=== PATIENT | female | born 1965 | race Caucasian/White ===

== ENCOUNTER → 2023-09-05 12:48 | Outpatient (REF) | payer OTHER, SELFPAY | LOC: WDC 12:48 | PROVIDERS: ATTENDING PHYSICIAN Nurse Practitioner Family; FAMILY PHYSICIAN Family Medicine | DX: Z12.31 Encounter for screening mammogram for malignant neoplasm of breast (principal) | CPT/HCPCS: 77063; 77067 ==

== ENCOUNTER 2024-07-30 06:29 | Day surgery (SDC) | payer OTHER, SELFPAY | END 2024-07-30 16:32 | disposition home or self-care (01) | LOC: GI 06:29 | PROVIDERS: ATTENDING PHYSICIAN Internal Medicine Gastroenterology | DX: Z12.11 Encounter for screening for malignant neoplasm of colon (principal); K57.30 Diverticulosis of large intestine without perforation or abscess without bleeding; K64.8 Other hemorrhoids; D12.0 Benign neoplasm of cecum; D12.2 Benign neoplasm of ascending colon; D12.8 Benign neoplasm of rectum | CPT/HCPCS: 45385; 88305 ==